=== PATIENT | female | born 1945 | race Asian ===

== ENCOUNTER 2019-02-15 06:20 | Day surgery (SDC) | payer OTHER ==
[~2019-02-15] VITALS: Ht 149.9 cm; Wt 50.5 kg
[~2019-02-15 06:20] MED LIST: SODIUM CHLORIDE 0.9% 1,000 ML IV ONE
[2019-02-15] MEDS ORDERED: LIDOCAINE 4% 50 ML SOLUTION TP ONE (06:21)
[2019-02-15] MEDS ORDERED: BENZOCAINE 20% 50 MCG/SPRAY 57 GM TP ONE (06:21)
[2019-02-15] MEDS ORDERED: LIDOCAINE 2% 30 ML JELLY TP ONE (06:21)
[2019-02-15] MEDS ORDERED: ATOR10TA84 PO (07:23)
[2019-02-15] MEDS ORDERED: MONT10TA21 PO (07:23)
[2019-02-15] MEDS ORDERED: HYDR25TA PO (07:23)
[2019-02-15] MEDS ORDERED: COMBISP IH (07:23)
[2019-02-15] MEDS ORDERED: [UNRECOGNIZED DRUG - CODE] PO (07:23)
[2019-02-15] MEDS ORDERED: ALEN70TA10 PO (07:23)
[2019-02-15] MEDS ORDERED: VITAD1000 PO (07:23)
[2019-02-15] MEDS ORDERED: FLUT1BLS IH (07:23)
[2019-02-15] MEDS ORDERED: AMLO-511 PO (07:23)
[2019-02-15] MEDS ORDERED: GABA-529 PO (07:23)
[2019-02-15] MEDS ORDERED: LOSA50TA64 PO (07:23)
[2019-02-15] MEDS ORDERED: OMEP20 PO (07:23)
[2019-02-15] MEDS ORDERED: MIDAZOLAM HCL 2 MG/2 ML VIAL ONE (08:06)
[2019-02-15] MEDS ORDERED: FentaNYL CITRATE-PF 100 MCG/2 ML VIAL ONE (08:06)
[2019-02-15] MEDS ORDERED: MethylPREDNISolone SOD SUCC 125 MG/2 ML VIAL ONE (09:15)
[2019-02-15] MEDS ORDERED: MethylPREDNISolone SOD SUCC 125 MG/2 ML VIAL IVP ONE (09:15)
[2019-02-15] MEDS ORDERED: OXYGEN THERAPY IH SCH (20:00)
== END 2019-02-15 10:20 | disposition home or self-care (01) ==
LOC: SURGERY 06:20
PROVIDERS: ATTEND Internal Medicine Critical Care Medicine
DX: J38.4 Edema of larynx (principal); B37.0 Candidal stomatitis; E78.00 Pure hypercholesterolemia, unspecified; K21.9 Gastro-esophageal reflux disease without esophagitis; I10 Essential (primary) hypertension; E78.5 Hyperlipidemia, unspecified; Z91.013 Allergy to seafood
CPT/HCPCS: 31623; 31624; 71045; 87015; 87070; 87101; 87205; 87206; 87220; 88108; 88312; J2250; J2930; J3010; J7030

== ENCOUNTER 2020-05-24 06:28 | Day surgery (SDC) | payer OTHER ==
[~2020-05-24] VITALS: Ht 149.9 cm; Wt 48.2 kg
[~2020-05-24 06:28] MED LIST changes: +ALEN70TA65 PO; +AMLO-257 PO; +ATOR10TA84 PO; +CHOL100018 PO; +COMBISP IH; +FLUT1BLS IH; +GABA-1216 PO; +HYDR-1475 PO; +LOSA50TA37 PO; +MONT-35 PO; +OMEP20 PO; -SODIUM CHLORIDE 0.9% 1,000 ML IV ONE; +SODIUM CHLORIDE 0.9% 1,000 ML ONE; +[UNRECOGNIZED DRUG - CODE] PO
[2020-05-24] MEDS ORDERED: SODIUM CHLORIDE 0.9% 1,000 ML IV ONE (06:30)
[2020-05-24] MEDS ORDERED: FentaNYL CITRATE-PF 100 MCG/2 ML VIAL ONE (07:55)
[2020-05-24] MEDS ORDERED: MIDAZOLAM HCL 2 MG/2 ML VIAL ONE (07:55)
[2020-05-24] MEDS ORDERED: MethylPREDNISolone SOD SUCC 125 MG/2 ML VIAL IVP ONE (09:15)
[2020-05-24] MEDS ORDERED: MethylPREDNISolone SOD SUCC 125 MG/2 ML VIAL ONE (09:32)
[2020-05-24] MEDS ORDERED: LIDOCAINE/PF 2% 5 ML VIAL ONE (16:31)
[2020-05-24] MEDS ORDERED: LIDOCAINE 4% 50 ML SOLUTION ONE (16:31)
[2020-05-24] MEDS ORDERED: ALBUTEROL SULFATE 2.5 MG/0.5 ML NEB SOLUTION NEB ONE (16:31)
[2020-05-24] MEDS ORDERED: OXYGEN THERAPY IH SCH (20:00)
== END 2020-05-24 10:35 | disposition home or self-care (01) ==
LOC: SURGERY 06:28
PROVIDERS: ATTEND Internal Medicine Critical Care Medicine
DX: R05 Cough (principal); R04.2 Hemoptysis; R91.1 Solitary pulmonary nodule; J34.89 Other specified disorders of nose and nasal sinuses; J98.8 Other specified respiratory disorders; J38.4 Edema of larynx; B37.0 Candidal stomatitis; I10 Essential (primary) hypertension; J45.909 Unspecified asthma, uncomplicated; Z79.899 Other long term (current) drug therapy; Z20.828 Contact with and (suspected) exposure to other viral communicable diseases
CPT/HCPCS: 31623; 31624; 71045; 87015; 87070; 87101; 87205; 87206; 87220; 87635; 88108; 88312; J2250; J2930; J3010; J3490; J7030; J7613; Z7610

== ENCOUNTER 2021-08-31 06:09 | Day surgery (SDC) | payer OTHER ==
[~2021-08-31] VITALS: Ht 149.9 cm; Wt 49.5 kg
[~2021-08-31 06:09] MED LIST changes: -HYDR-1475 PO; +HYDR25TA2 PO; +LOSA-382 PO; -LOSA50TA37 PO; -SODIUM CHLORIDE 0.9% 1,000 ML ONE
[2021-08-31] MEDS ORDERED: SODIUM CHLORIDE 0.9% 1,000 ML ONE (06:47)
[2021-08-31 06:52] LABS: COVID AG,FIA SOURCE NASOPHARYNGEAL
[2021-08-31] MEDS ORDERED: SODIUM CHLORIDE 0.9% 1,000 ML IV ONE (07:00)
[2021-08-31] MEDS ORDERED: FentaNYL CITRATE PF 100 MCG/2 ML VIAL ONE (08:14)
[2021-08-31] MEDS ORDERED: MIDAZOLAM HCL 5 MG/ML VIAL ONE (08:14)
[2021-08-31] MEDS ORDERED: MethylPREDNISolone SOD SUCC 125 MG/2 ML VIAL IVP ONE (09:15)
[2021-08-31] MEDS ORDERED: MethylPREDNISolone SOD SUCC 125 MG/2 ML VIAL ONE (09:19)
[2021-08-31] MEDS ORDERED: LIDOCAINE 2% 30 ML JELLY TP ONE (12:00)
[2021-08-31] MEDS ORDERED: LIDOCAINE 4% 50 ML SOLUTION TP ONE (12:00)
[2021-08-31] MEDS ORDERED: BENZOCAINE 20% 50 MCG/SPRAY 57 GM TP ONE (12:00)
[2021-08-31] MEDS ORDERED: ALBUTEROL SULFATE 2.5 MG/0.5 ML NEB SOLUTION NEB ONE (12:00)
[2021-08-31] MEDS ORDERED: OXYGEN THERAPY IH SCH (20:00)
== END 2021-08-31 12:05 | disposition home or self-care (01) ==
LOC: SURGERY 06:09
PROVIDERS: ATTEND Internal Medicine Critical Care Medicine
DX: R05.3 Chronic cough (principal); R06.2 Wheezing; R04.2 Hemoptysis; R91.1 Solitary pulmonary nodule; B37.0 Candidal stomatitis; J98.11 Atelectasis; I70.0 Atherosclerosis of aorta; Z79.899 Other long term (current) drug therapy
CPT/HCPCS: 31623; 31624; 71045; 87015; 87070; 87101; 87206; 87220; 87426; 88112; 88184; 88185; 88312; C9803; J2250; J2930; J3010; J7030; J7613; Z7610

== ENCOUNTER 2022-12-25 06:53 | Day surgery (SDC) | payer OTHER ==
[~2022-12-25] VITALS: Ht 152.4 cm; Wt 50.0 kg
[~2022-12-25 06:53] MED LIST changes: +ATOR10TA PO; -ATOR10TA84 PO
[2022-12-25] MEDS ORDERED: LIDOCAINE 4% 50 ML SOLUTION TP ONE (06:54)
[2022-12-25] MEDS ORDERED: BENZOCAINE 20% 50 MCG/SPRAY 57 GM TP ONE (06:54)
[2022-12-25] MEDS ORDERED: LIDOCAINE 2% 11 ML JELLY TP ONE (06:54)
[2022-12-25 07:27] LABS: COVID AG,FIA SOURCE NASAL SWAB
[2022-12-25] MEDS ORDERED: FentaNYL CITRATE PF 100 MCG/2 ML VIAL ONE (07:37)
[2022-12-25] MEDS ORDERED: MIDAZOLAM HCL 2 MG/2 ML VIAL ONE (07:37)
[2022-12-25] MEDS ORDERED: SODIUM CHLORIDE 0.9% 1,000 ML ONE (07:51)
[2022-12-25] MEDS ORDERED: SODIUM CHLORIDE 0.9% 1,000 ML IV ONE (08:00)
[2022-12-25] MEDS ORDERED: MethylPREDNISolone SOD SUCC 125 MG/2 ML VIAL ONE (09:50)
[2022-12-25] MEDS ORDERED: MethylPREDNISolone SOD SUCC 125 MG/2 ML VIAL IVP ONE (10:00)
== END 2022-12-25 12:10 | disposition home or self-care (01) ==
LOC: SURGERY 06:53
PROVIDERS: ATTEND Internal Medicine Critical Care Medicine
DX: R05.3 Chronic cough (principal); R91.1 Solitary pulmonary nodule; J98.09 Other diseases of bronchus, not elsewhere classified; J98.8 Other specified respiratory disorders; Z20.822 Contact with and (suspected) exposure to COVID-19; Z91.018 Allergy to other foods; Z91.013 Allergy to seafood; I10 Essential (primary) hypertension; Z98.890 Other specified postprocedural states; Z79.899 Other long term (current) drug therapy
CPT/HCPCS: 31623; 88112; 87206; 87101; 87220; 87070; 31624; 71045; 87015; 87426; J3010; J2250; J2930; Q9967; J7030; C9803; Z7610

== ENCOUNTER 2023-04-28 06:07 | Day surgery (SDC) | payer OTHER ==
[~2023-04-28] VITALS: Ht 152.4 cm; Wt 51.4 kg
[2023-04-28] MEDS ORDERED: LIDOCAINE 2% 11 ML JELLY TP ONE (06:08)
[2023-04-28] MEDS ORDERED: LIDOCAINE 4% 50 ML SOLUTION TP ONE (06:08)
[2023-04-28] MEDS ORDERED: BENZOCAINE 20% 50 MCG/SPRAY 57 GM TP ONE (06:08)
[2023-04-28] MEDS ORDERED: SODIUM CHLORIDE 0.9% 1,000 ML ONE (06:50)
[2023-04-28] MEDS ORDERED: SODIUM CHLORIDE 0.9% 1,000 ML IV ONE (07:00)
[2023-04-28] MEDS ORDERED: FentaNYL CITRATE PF 100 MCG/2 ML VIAL ONE (08:11)
[2023-04-28] MEDS ORDERED: MIDAZOLAM HCL 2 MG/2 ML VIAL ONE (08:11)
[2023-04-28] MEDS ORDERED: MethylPREDNISolone SOD SUCC 125 MG/2 ML VIAL ONE (09:08)
[2023-04-28] MEDS ORDERED: MethylPREDNISolone SOD SUCC 125 MG/2 ML VIAL IVP ONE (09:30)
== END 2023-04-28 11:40 | disposition home or self-care (01) ==
LOC: SURGERY 06:07
PROVIDERS: ATTEND Internal Medicine Critical Care Medicine
DX: J38.4 Edema of larynx (principal); B37.0 Candidal stomatitis; I10 Essential (primary) hypertension; E78.00 Pure hypercholesterolemia, unspecified; M19.90 Unspecified osteoarthritis, unspecified site; Z91.013 Allergy to seafood; Z98.890 Other specified postprocedural states; Z79.899 Other long term (current) drug therapy
CPT/HCPCS: 31623; 88112; 87206; 87101; 87220; 87070; 31624; 71045; 87015; J3010; J2250; J2930; Q9967; J7030; Z7610